=== PATIENT | female | born 1985 | race African-American/Black ===

== ENCOUNTER 2022-04-22 12:57 | Inpatient (IN) | payer BC ==
[2022-04-22] MEDS ORDERED: Butorphanol 1 MG/ML SDV IVPUSH PRN (13:14)
[2022-04-22] MEDS ORDERED: Misoprostol 200 MCG Tab PO PRN (13:14)
[2022-04-22] MEDS ORDERED: Water For Irrigation,Sterile 1,000 ML Container IRR PRN (13:14)
[2022-04-22] MEDS ORDERED: Carboprost Tromethamine 250 MCG/1 ML Amp IM PRN (13:14)
[2022-04-22] MEDS ORDERED: Sodium Chloride 0.9% 2.5 ML Syringe FLUSH PRN ×2 (13:14→18:07)
[2022-04-22] MEDS ORDERED: Sodium Chloride 0.9% 10 ML Syringe FLUSH PRN ×2 (13:14→18:07)
[2022-04-22] MEDS ORDERED: Ondansetron 4 MG/2 ML SDV IVPUSH PRN (13:14)
[2022-04-22] MEDS ORDERED: Tranexamic Acid 1,000 MG in Sodium Chloride 0.9% 100 ML IV PRN (13:14)
[2022-04-22] MEDS ORDERED: Sodium Chloride 0.9% 20 ML SDV IV PRN ×2 (13:14→18:07)
[2022-04-22] MEDS ORDERED: Lidocaine 1% 50 ML MDV INJECT PRN (13:14)
[2022-04-22] MEDS ORDERED: Methylergonovine 0.2 MG/1 ML Amp IM PRN (13:14)
[2022-04-22] MEDS ORDERED: Lactated Ringers 1,000 ML IV SCH (13:15)
[2022-04-22] MEDS ORDERED: Oxytocin/0.9 % Sodium Chloride 30 UNIT/500 ML BAG IV SCH (13:15)
[2022-04-22] MEDS ORDERED: Lidocaine 2% 5 ML SDV ONE (13:25)
[2022-04-22] MEDS ORDERED: Labetalol 100 MG/20 ML MDV ONE (13:31)
[2022-04-22] MEDS: Labetalol 100 MG/20 ML MDV IVPUSH ONE ×3 (13:38→18:47)
[2022-04-22] MEDS ORDERED: Morphine 4 MG/ML VIAL ONE (13:57)
[2022-04-22] MEDS ORDERED: Morphine 4 MG/ML VIAL IVPUSH ONE (14:09)
[2022-04-22 14:17] LABS: CARBON DIOXIDE,CO2 18.5 mmol/L (21.0-32.0); POTASSIUM,K 3.7 mmol/L (3.5-5.1)
[2022-04-22] MEDS ORDERED: Ibuprofen 800 MG Tab PO PRN (14:23)
[2022-04-22] MEDS ORDERED: Witch Hazel Medicated Pads 40/Jar TOP PRN (14:23)
[2022-04-22] MEDS ORDERED: oxyCODONE 5 MG Tab PO PRN (14:23)
[2022-04-22] MEDS ORDERED: Acetaminophen 500 MG Tab PO PRN (14:23)
[2022-04-22] MEDS ORDERED: Benzocaine/Menthol 20%-0.5% Spray 78 GM Cannister TOP PRN (14:23)
[2022-04-22] MEDS ORDERED: Bisacodyl 10 MG Supp RECTAL PRN (14:23)
[2022-04-22] MEDS ORDERED: Lanolin 100% Cream 7 GM Tube TOP PRN (14:23)
[2022-04-22] MEDS ORDERED: Docusate Sodium 100 MG Cap PO PRN (14:23)
[2022-04-22] MEDS ORDERED: Ibuprofen 400 MG Tab PO PRN (14:23)
[2022-04-22] MEDS ORDERED: Magnesium Sulfate/Water 4 GM in Premix Bag 1 BAG IV ONE (18:07)
[2022-04-22] MEDS ORDERED: Calcium Gluconate 10% 1 GM/10 ML SDV IV PRN (18:07)
[2022-04-22] MEDS: Magnesium Sulfate/Water 20 GM/500 ML BAG IV SCH (19:16)
[2022-04-22] MEDS: Acetaminophen 500 MG Tab PO PRN (22:22)
[2022-04-23 04:45] LABS: CARBON DIOXIDE,CO2 21.4 mmol/L (21.0-32.0); POTASSIUM,K 4.1 mmol/L (3.5-5.1)
[2022-04-23] MEDS: Magnesium Sulfate/Water 20 GM/500 ML BAG IV SCH ×2 (05:29→15:29)
[2022-04-23] MEDS: Labetalol 100 MG Tab PO SCH ×2 (10:15→21:14)
[2022-04-24] MEDS: Acetaminophen 500 MG Tab PO PRN (04:48)
[2022-04-24 06:25] LABS: CARBON DIOXIDE,CO2 25.6 mmol/L (21.0-32.0); POTASSIUM,K 3.4 mmol/L (3.5-5.1)
[2022-04-24] MEDS: Labetalol 100 MG Tab PO SCH (09:29)
== END 2022-04-24 14:03 | disposition home or self-care (01) | DRG 560 ==
LOC: MW.OBCHECK 12:57 → MW.OB 12:58 → OBSVTOIN 13:43 → MW.OBCHECK 13:55 → MW.OB 20:51
PROVIDERS: ADMIT Obstetrics & Gynecology; ATTEND Obstetrics & Gynecology
PROC: 10E0XZZ Delivery of Products of Conception, External Approach (ICD-10-PCS; principal; 2022-04-22)
PROC: 10907ZC Drainage of Amniotic Fluid, Therapeutic from Products of Conception, Via Natural or Artificial Opening (ICD-10-PCS; 2022-04-22)
PROC: 0KQM0ZZ Repair Perineum Muscle, Open Approach (ICD-10-PCS; 2022-04-22)
DX: O14.14 Severe pre-eclampsia complicating childbirth (principal); Z3A.38 38 weeks gestation of pregnancy; Z37.0 Single live birth; O24.429 Gestational diabetes mellitus in childbirth, unspecified control; O70.1 Second degree perineal laceration during delivery; O69.81X0 Labor and delivery complicated by cord around neck, without compression, not applicable or unspecified; Z20.822 Contact with and (suspected) exposure to COVID-19
CPT/HCPCS: 36415; 59025; 59409; 80053; 82803; 83735; 84550; 85025; 85027; 86592; 86769; 86850; 86900; 86901; A9270-GY; J2270; J3475; J3490; U0002

== ENCOUNTER 2024-12-19 06:33 | Inpatient (IN) | payer BC ==
[2024-12-19] MEDS: NIFEdipine 30 MG Tab.ER PO ONE (07:05)
[2024-12-19] MEDS ORDERED: Misoprostol 200 MCG Tab PO PRN (07:42)
[2024-12-19] MEDS ORDERED: Misoprostol 200 MCG Tab RECTAL PRN (07:42)
[2024-12-19] MEDS ORDERED: Sodium Chloride 0.9% 20 ML SDV IV PRN (07:42)
[2024-12-19] MEDS ORDERED: Sodium Chloride 0.9% 10 ML Syringe FLUSH PRN (07:42)
[2024-12-19] MEDS ORDERED: Ondansetron 4 MG/2 ML SDV IVPUSH PRN (07:42)
[2024-12-19] MEDS ORDERED: Sodium Chloride 0.9% 2.5 ML Syringe FLUSH PRN (07:42)
[2024-12-19] MEDS ORDERED: Water For Irrigation,Sterile 1,000 ML Container IRR PRN (07:42)
[2024-12-19] MEDS ORDERED: Methylergonovine 0.2 MG/1 ML Amp IM PRN (07:42)
[2024-12-19] MEDS ORDERED: Lidocaine 1% 50 ML MDV INJECT PRN (07:42)
[2024-12-19] MEDS ORDERED: Carboprost Tromethamine 250 MCG/1 mL Vial IM PRN (07:42)
[2024-12-19] MEDS ORDERED: Butorphanol 1 MG/ML SDV IVPUSH PRN (07:42)
[2024-12-19] MEDS ORDERED: Lactated Ringers 1,000 ML IV SCH (07:45)
[2024-12-19 08:07] LABS: HEMATOCRIT 36.1 % (37.0-47.0); HEMOGLOBIN 11.9 g/dL (12.0-16.0); MEAN CORPUSCULAR VOLUME 78.8 fL (83.0-99.0); MEAN PLATELET VOLUME 10.1 fL (9.4-12.3); PLATELET COUNT,PLT 201 K/uL (150-400); RED BLOOD CELL COUNT 4.58 M/uL (4.10-5.30); WHITE BLOOD CELL COUNT,WBC 7.72 K/uL (3.9-11.3)
[2024-12-19 08:28] LABS: CREATININE,URINE RAND 166.5 mg/dL
[2024-12-19 08:31] LABS: PROTEIN CREATININE RATIO,URINE 1.6; PROTEIN,URINE RANDOM 262.5 mg/dL (<11.9)
[2024-12-19 09:16] LABS: A/G RATIO 0.7 (0.9-1.6); ALBUMIN 2.6 g/dL (3.4-5.0); BILIRUBIN TOTAL 0.4 mg/dL (0.2-1.0); CARBON DIOXIDE,CO2 24.5 mmol/L (21.0-32.0); CREATININE 0.8 mg/dL (0.6-1.0); EST CRCL DRUG DOSING (CG) 79.65 mL/min; POTASSIUM,K 3.7 mmol/L (3.5-5.1); PROTEIN TOTAL,TP 6.5 g/dL (6.4-8.2)
[2024-12-19] MEDS: Oxytocin/0.9 % Sodium Chloride 30 UNIT/500 ML BAG IV SCH (19:22)
[2024-12-19] MEDS: NIFEdipine 30 MG Tab.ER PO SCH (19:46)
[2024-12-19] MEDS ORDERED: Lanolin 100% Cream 7 GM Tube TOP PRN (20:10)
[2024-12-19] MEDS ORDERED: Ibuprofen 800 MG Tab PO PRN (20:10)
[2024-12-19] MEDS ORDERED: Acetaminophen 500 MG Tab PO PRN (20:10)
[2024-12-19] MEDS ORDERED: oxyCODONE 5 MG Tab PO PRN (20:10)
[2024-12-19] MEDS ORDERED: Docusate Sodium 100 MG Cap PO PRN (20:10)
[2024-12-19] MEDS: Labetalol 100 MG/20 ML MDV IVPUSH ONE (20:52)
[2024-12-19] MEDS: Benzocaine/Menthol 20%-0.5% Spray 78 GM Cannister TOP PRN (22:30)
[2024-12-19] MEDS: Witch Hazel Medicated Pads 40/Jar TOP PRN (22:30)
[2024-12-19 23:40] LABS: PH,UMBILICAL ARTERIAL 7.13 (7.18-7.38); PH,UMBILICAL VENOUS 7.29 (7.25-7.45)
[2024-12-20 06:11] LABS: HEMATOCRIT 35.6 % (37.0-47.0); HEMOGLOBIN 11.2 g/dL (12.0-16.0)
== END 2024-12-20 11:45 | disposition home or self-care (01) | DRG 560 ==
LOC: MW.OBCHECK 06:33 → MW.OB 06:34 → MW.OBCHECK 07:42 → MW.OB 07:42 → OBSVTOIN 19:20 → MW.OB 23:26
PROVIDERS: ADMIT Obstetrics & Gynecology Obstetrics; ATTEND Obstetrics & Gynecology Obstetrics
PROC: 10E0XZZ Delivery of Products of Conception, External Approach (ICD-10-PCS; principal; 2024-12-19)
PROC: 3E0R3BZ Introduction of Anesthetic Agent into Spinal Canal, Percutaneous Approach (ICD-10-PCS; 2024-12-19)
DX: O48.0 Post-term pregnancy (principal); O14.94 Unspecified pre-eclampsia, complicating childbirth; Z3A.40 40 weeks gestation of pregnancy; Z37.0 Single live birth; Z79.82 Long term (current) use of aspirin; Z79.899 Other long term (current) drug therapy; O99.214 Obesity complicating childbirth
CPT/HCPCS: 36415; 59025; 80053; 82570; 82803; 84156; 85014; 85018; 85027; 86592; 86850; 86900; 86901; A9270-GY; J1920; J2590